=== PATIENT | female | born 1980 | race Two or more races ===

== ENCOUNTER → 2016-10-29 | Day surgery (SDC) | payer OTHER ==
--- NOTE | 2016-11-02 16:32 | PATH ---
Cytology Non-Gynecological Report Patient Name: HIRAM MCCLURE [facility]. Rec. #: [id number] /Age/Gender: 1980 (Age: 36) / F Account: [id number] Location: [facility] Taken: 11/01/2016 Received: 11/01/2016 Reported: 11/02/2016 Physicians: Jhony Jhaveri M.D. Specimen(s) Received LEFT BREAST CYST Clinical History Left breast cyst Final Diagnosis BREAST, LEFT, CYST, US-GUIDED ASPIRATION: SATISFACTORY FOR EVALUATION. BENIGN. MODERATELY CELLULAR SPECIMEN WITH COHESIVE CLUSTERS AND SHEETS OF APOCRINE/DUCTAL CELLS AND ACELLULAR MATERIAL, CONSISTENT WITH CYST/FIBROCYSTIC CHANGE. Electronically Signed Tiera Mcclure M.D. Gross Description Received in 50% alcohol is approximately 50 cc of yellow fluid from which two cytoconcentrate slides are prepared.
== END | disposition home or self-care (01) ==
LOC: FRADUS-SUR 11:26 → EDSTATUS 12:00
PROVIDERS: ATTEND Surgery
PROC: 0H9U3ZX Drainage of Left Breast, Percutaneous Approach, Diagnostic (ICD-10-PCS; principal; 2016-10-29)
PROC: BH41ZZZ Ultrasonography of Left Breast (ICD-10-PCS; 2016-10-29)
DX: N60.02 Solitary cyst of left breast (principal)
CPT/HCPCS: 76942-TC; 88108